=== PATIENT | female | born 1960 | race Caucasian/White ===

== ENCOUNTER 2018-09-08 21:10 | Inpatient (IN) | payer MEDICAID ==
[~2018-09-08] VITALS: Ht 154.9 cm; Wt 56.7 kg
[~2018-09-08 21:10] MED LIST: ALPR1TAB2 PO; BENA1TAB18 PO; BLAC200C PO; OXYBUTYNIN; accupril
[2018-09-09] MEDS ORDERED: PANTOPRAZOLE SODIUM 40 MG/VIAL IV STA (01:07)
[2018-09-09] MEDS ORDERED: ONDANSETRON HCL 4MG/2ML INJ IV STA (01:07)
[2018-09-09] MEDS ORDERED: SODIUM CHLORIDE 0.9% 1000ML BAG (SEPSIS BOLUS) IV ONE (01:15)
[2018-09-09] MEDS ORDERED: VISCOUS LIDOCAINE 2% 15 ML UDC MM STA (01:26)
[2018-09-09] MEDS ORDERED: MAGNESIUM/ALUMINUM HYDROXIDE/SIMETHICONE 30ML UDC PO ONE (01:30)
[2018-09-09 01:38] LABS: BASOPHILS % 0.4 % (0.0-2.0); EOSINOPHILS % 0.6 % (0.0-5.0); HEMATOCRIT. 41.3 % (36.0-48.0); HEMOGLOBIN. 13.9 g/dL (12.0-16.0); LYMPHOCYTES % 17.7 % (20.0-50.0); MEAN CORPUSCULAR HEMOGLOBIN 28.5 pg (28.0-32.0); MEAN CORPUSCULAR VOLUME 84.6 fL (81.0-99.0); MEAN PLATELET VOLUME 7.9 fl (7.4-10.4); MONOCYTES % 5.2 % (2.0-8.0); NEUTROPHILS % 76.1 % (40.0-76.0); PLATELET 322 x1000/uL (130-400); RED BLOOD CELL COUNT 4.88 mill/uL (4.2-5.4); RED CELL DISTRIBUTION WIDTH 13.3 % (11.6-14.6)
[2018-09-09 01:46] LABS: CHLORIDE 103 mEq/L (98-107)
[2018-09-09 01:49] LABS: PROTHROMBIN TIME 10.3 sec (9.1-11.1)
[2018-09-09] MEDS ORDERED: MORPHINE SULFATE 4 MG/ML CPJ (NOT FOR IM USE) IV SCH (04:00)
[2018-09-09] MEDS ORDERED: DIPHENHYDRAMINE 50MG/ML VIAL IV ONE (06:30)
[2018-09-09] MEDS: SODIUM CHLORIDE 0.45% 1,000 ML IV SCH ×2 (07:01→22:00)
[2018-09-09] MEDS ORDERED: LORAZEPAM 2MG/ML CPJ IV PRN (07:15)
[2018-09-09] MEDS ORDERED: DIPHENHYDRAMINE 50MG/ML VIAL IV PRN (07:15)
[2018-09-09] MEDS ORDERED: IPRATROPIUM/ALBUTEROL 0.5-3(2.5)MG/3ML NEB INH PRN (07:15)
[2018-09-09] MEDS ORDERED: ACETAMINOPHEN 325MG TABLET PO PRN (07:15)
[2018-09-09] MEDS ORDERED: ONDANSETRON HCL 4MG/2ML INJ IV PRN (07:15)
[2018-09-09] MEDS ORDERED: GUAIFENESIN 200MG/10ML SUGAR FREE UDC PO PRN (07:15)
[2018-09-09] MEDS ORDERED: DOCUSATE SODIUM 100MG CAPSULE PO PRN (07:15)
[2018-09-09] MEDS ORDERED: NA PHOS,M-B/NA PHOS,DI-BA ENEMA 118ML PR PRN (07:15)
[2018-09-09] MEDS ORDERED: CLONIDINE 0.1MG TABLET PO PRN (07:15)
[2018-09-09] MEDS ORDERED: MORPHINE SULFATE 4 MG/ML CPJ (NOT FOR IM USE) IV PRN (07:15)
[2018-09-09] MEDS ORDERED: MAGNESIUM/ALUMINUM HYDROXIDE/SIMETHICONE 30ML UDC PO PRN (07:15)
[2018-09-09] MEDS ORDERED: METRONIDAZOLE 500 MG PREMIX 100 ML IV NR (11:53)
[2018-09-09] MEDS ORDERED: LEVOFLOXACIN 500MG PREMIX 100 ML IV NR (11:53)
[2018-09-09] MEDS: HYDROCODONE/ACETAMINOPHEN 5/325MG TABLET PO PRN ×2 (13:45→13:47)
[2018-09-09 16:20] VITALS: BP 151/75
[2018-09-09] MEDS ORDERED: OMEP10CA4 MT (17:54)
[2018-09-09] MEDS ORDERED: ENOXAPARIN 40MG/0.4ML SYR SUBCUT SCH (18:30)
[2018-09-09 19:26] LABS: CHLORIDE 107 mEq/L (98-107)
[2018-09-09 20:00] VITALS: BP 126/63
[2018-09-09] MEDS: METRONIDAZOLE 500 MG PREMIX 100 ML IV SCH (21:59)
[2018-09-09] MEDS: ALPRAZOLAM 0.25 MG TABLET PO SCH (21:59)
[2018-09-10] VITALS: BP 131/72
[2018-09-10] MEDS: HYDROCODONE/ACETAMINOPHEN 5/325MG TABLET PO PRN ×2 (03:28→09:10)
[2018-09-10 04:00] VITALS: BP 129/76
[2018-09-10 06:23] LABS: BASOPHILS % 0.7 % (0.0-2.0); HEMATOCRIT. 37.9 % (36.0-48.0); HEMOGLOBIN. 12.8 g/dL (12.0-16.0); LYMPHOCYTES % 25.2 % (20.0-50.0); MEAN CORPUSCULAR HEMOGLOBIN 28.7 pg (28.0-32.0); MEAN CORPUSCULAR VOLUME 85.2 fL (81.0-99.0); MEAN PLATELET VOLUME 7.9 fl (7.4-10.4); MONOCYTES % 9.7 % (2.0-8.0); NEUTROPHILS % 62.4 % (40.0-76.0); PLATELET 268 x1000/uL (130-400); RED BLOOD CELL COUNT 4.45 mill/uL (4.2-5.4); RED CELL DISTRIBUTION WIDTH 13.1 % (11.6-14.6)
[2018-09-10] MEDS: METRONIDAZOLE 500 MG PREMIX 100 ML IV SCH (06:39)
[2018-09-10 07:49] LABS: CHLORIDE 105 mEq/L (98-107)
[2018-09-10 07:58] LABS: HDL CHOLESTEROL 60 mg/dL (40-59); LDL CHOLESTEROL 94 mg/dL (5-100)
[2018-09-10 08:00] VITALS: BP 134/73
[2018-09-10] MEDS: ALPRAZOLAM 0.25 MG TABLET PO SCH (09:00)
[2018-09-10 12:00] VITALS: BP 153/70
[2018-09-10] MEDS ORDERED: LEVOFLOXACIN 500MG PREMIX 100 ML IV SCH (12:00)
[2018-09-10 12:04] VITALS: BP 153/70
[2018-09-10] MEDS ORDERED: METRONIDAZOLE 500 MG PREMIX 100 ML IV SCH (22:00)
[2018-09-11] MEDS ORDERED: LEVOFLOXACIN 500MG PREMIX 100 ML IV SCH (11:00)
== END 2018-09-10 14:28 | disposition home or self-care (01) | DRG 249 ==
LOC: ER 21:10 → 6EST 09-09 06:42 → ENRESERV 09-09 10:10 → CANRESERV 09-09 10:10 → ENRESERV 09-09 15:34
PROVIDERS: ADMIT Internal Medicine; ATTEND Internal Medicine
DX: A08.4 Viral intestinal infection, unspecified (principal); F41.9 Anxiety disorder, unspecified; K29.70 Gastritis, unspecified, without bleeding; I10 Essential (primary) hypertension; K21.9 Gastro-esophageal reflux disease without esophagitis; K52.9 Noninfective gastroenteritis and colitis, unspecified; Z98.51 Tubal ligation status; Z79.899 Other long term (current) drug therapy; Z91.041 Radiographic dye allergy status
CPT/HCPCS: 36415; 71045; 74176; 80048; 80061; 86850; 86900; 96365; 96375; 99285; C9113; J1200; J1650; J1956; J2270; J2405; J3490; J7030